=== PATIENT | male | born 1960 | race Caucasian/White ===

== ENCOUNTER 2018-02-09 07:53 | Emergency (ER) | payer MEDICARE ==
[2018-02-09 09:31] LABS: ALT (SGPT) 14 U/L (8-55); AST (SGOT) 26 U/L (5-34); Albumin 3.8 g/dL (3.5-5.0); Alkaline Phosphatase 52 U/L (40-150); Anion Gap 12 mmol/L (10-20); BUN (Urea Nitrogen) 9 mg/dL (8.4-25.7); Bilirubin, Total 0.6 mg/dL (0.2-1.2); CK (CPK) 274 U/L (30-200); Calc. Creatinine Clearance 0 mL/min (70-130); Carbon Dioxide 25 mmol/L (22-29); Chloride 107 mmol/L (98-107); Estimated GFR-MDRD Greater than 90; Globulin 2.8 g/dL (2.4-3.5); Glucose 106 mg/dL (70-105); Lipase 8 U/L (8-78); Protein, Total 6.6 g/dL (6.0-8.3); Sodium 140 mmol/L (136-145)
[2018-02-09 09:49] LABS: Hemoglobin 13.5 g/dL (14.0-18.0); Mean Corpuscular HGB CONC 35.4 g/dL (32.0-36.0); Mean Corpuscular Hemoglobin 32.9 pg (27.0-31.0); Mean Corpuscular Volume 92.8 fL (78.0-98.0); Mean Platelet Volume 7.4 fL (7.4-10.4); Platelet Count 166 thou/uL (130-400); RBC Distribution Width 12.6 % (11.5-14.5); White Blood Cell (WBC) Count 9.9 thou/uL (4.8-10.8)
[2018-02-09 09:50] LABS: CKMB 15.5 ng/mL (0-6.6); Troponin I 0.511 ng/mL (< 0.028)
[2018-02-09 10:16] LABS: Lymphocytes 8 % (21-51); MDiff Complete? YES; Metamyelocyte 1 % (0-0); Monocytes 9 % (0-10); Myelocyte 3 % (0-0); Neutrophil 79 % (42-75); PLT Morphology Comment Appears Adequate; RBC Morphology Normal
--- NOTE | 2018-02-09 18:19 | RAD ---
PORTABLE CHEST: Date: 02/09/18 FINDINGS: The heart is normal in size and the lungs are clear. This portable film at 0843 hours shows no acute changes. There is no congestion, edema, or pleural effusion. Mediastinum appears normal. IMPRESSION: No acute findings. POS: HOME
== END 2018-02-09 11:00 | disposition short-term general hospital (02) ==
LOC: BURERS 07:53
DX: I24.9 Acute ischemic heart disease, unspecified (principal); I25.2 Old myocardial infarction; E78.5 Hyperlipidemia, unspecified; I10 Essential (primary) hypertension; F32.9 Major depressive disorder, single episode, unspecified; F17.210 Nicotine dependence, cigarettes, uncomplicated; Z79.899 Other long term (current) drug therapy
CPT/HCPCS: 71045; 80053; 82553; 83690; 84484; 85025; 93005

== ENCOUNTER 2018-02-26 07:23 | Emergency (ER) | payer MEDICARE ==
[2018-02-26 08:21] LABS: Hemoglobin 13.4 g/dL (14.0-18.0); Mean Corpuscular HGB CONC 35.6 g/dL (32.0-36.0); Mean Corpuscular Hemoglobin 31.8 pg (27.0-31.0); Mean Corpuscular Volume 89.5 fL (78.0-98.0); Mean Platelet Volume 7.2 fL (7.4-10.4); Platelet Count 194 thou/uL (130-400); RBC Distribution Width 12.1 % (11.5-14.5); Red Blood Cell (RBC) Count 4.22 mill/uL (4.70-6.10); White Blood Cell (WBC) Count 7.3 thou/uL (4.8-10.8)
[2018-02-26 08:26] LABS: ALT (SGPT) 12 U/L (8-55); AST (SGOT) 17 U/L (5-34); Alkaline Phosphatase 65 U/L (40-150); Anion Gap 13 mmol/L (10-20); BUN (Urea Nitrogen) 11 mg/dL (8.4-25.7); Bilirubin, Total 0.4 mg/dL (0.2-1.2); Calc. Creatinine Clearance 0 mL/min (70-130); Calcium 9.6 mg/dL (7.8-10.44); Carbon Dioxide 25 mmol/L (22-29); Chloride 107 mmol/L (98-107); Estimated GFR-MDRD Greater than 90; Glucose 116 mg/dL (70-105); Sodium 141 mmol/L (136-145)
[2018-02-26 08:31] LABS: CKMB 1.3 ng/mL (0-6.6); Troponin I Less than 0.010 ng/mL (< 0.028)
[2018-02-26 08:36] LABS: Eosinophils 3 % (0-10); Lymphocytes 15 % (21-51); MDiff Complete? YES; Monocytes 8 % (0-10); Neutrophil 70 % (42-75); PLT Morphology Comment Appears Adequate; RBC Morphology Normal; Reactive Lymphocytes 4 % (0-10)
--- NOTE | 2018-02-26 20:06 | RAD ---
PORTABLE CHEST: 02/26/18 An AP portable film at 0734 is compared with a 02/09/18 study. There has been on adverse interval change. The heart is normal in size and the lungs are clear. No in filtrate, effusion, edema, or congestion was noted. The mediastinum appears normal. IMPRESSION: No acute finding. POS: HOME
== END 2018-02-26 09:23 ==
LOC: BURERS 07:23
DX: R06.02 Shortness of breath (principal); J45.909 Unspecified asthma, uncomplicated; I25.2 Old myocardial infarction; E78.5 Hyperlipidemia, unspecified; M06.9 Rheumatoid arthritis, unspecified; F32.9 Major depressive disorder, single episode, unspecified; F17.210 Nicotine dependence, cigarettes, uncomplicated; Z79.899 Other long term (current) drug therapy; Z79.82 Long term (current) use of aspirin
CPT/HCPCS: 36415; 71045; 80053; 82553; 84484; 85025; 85379; 93005

== ENCOUNTER 2020-07-06 08:58 | Emergency (ER) | payer MEDICARE ==
[2020-07-06] MEDS ORDERED: Lorazepam 2 MG/ML VIAL ONE (09:25)
[2020-07-06] MEDS ORDERED: Metoprolol Tartrate 5 MG/5 ML VIAL ONE (09:26)
[2020-07-06] MEDS ORDERED: Aspirin Chewable 81 MG TAB ONE (09:26)
[2020-07-06 09:28] LABS: #Basophils 0.3 thou/uL (0.0-0.2); #Eosinphils 0.4 thou/uL (0.0-0.7); #Lymphocytes 1.4 thou/uL (1.20-3.40); #Monocytes 0.7 thou/uL (0.11-0.59); %Basophils 2.9 % (0.0-1.0); %Lymphocytes 15.8 % (21.0-51.0); %Monocytes 8.4 % (0.0-10.0); %Neutrophils 67.9 % (42.0-75.0); Hemoglobin 15.8 g/dL (14.0-18.0); Mean Corpuscular HGB CONC 31.2 g/dL (32.0-36.0); Mean Corpuscular Hemoglobin 31.3 pg (27.0-31.0); Platelet Count 213 thou/uL (130-400); RBC Distribution Width 14.2 % (11.5-14.5); Red Blood Cell (RBC) Count 5.06 mill/uL (4.70-6.10); White Blood Cell (WBC) Count 8.9 thou/uL (4.8-10.8)
[2020-07-06 09:46] LABS: ALT (SGPT) 16 U/L (8-55); AST (SGOT) 18 U/L (5-34); Albumin 3.9 g/dL (3.5-5.0); Alkaline Phosphatase 93 U/L (40-110); Anion Gap 16 mmol/L (10-20); BUN (Urea Nitrogen) 8 mg/dL (8.4-25.7); Bilirubin, Total 0.3 mg/dL (0.2-1.2); Calc. Creatinine Clearance 0 mL/min (70-130); Calcium 9.4 mg/dL (7.8-10.44); Carbon Dioxide 24 mmol/L (22-29); Chloride 102 mmol/L (98-107); Glucose 108 mg/dL (70-105); Lipase 14 U/L (8-78); Potassium 3.8 mmol/L (3.5-5.1); Sodium 138 mmol/L (136-145)
[2020-07-06 10:45] LABS: Globulin 4.2 g/dL (2.4-3.5); Protein, Total 8.1 g/dL (6.0-8.3)
--- NOTE | 2020-07-06 17:13 | RAD ---
PORTABLE CHEST: 07/06/20 An AP portable film at 0937 is compared with a 04/12/18 study. The heart is normal in size. There is no vascular congestion, edema or pleural effusion. No lobar pul monary infiltrates were seen. Some haziness in the lingula is longstanding and is most likely a fat p ad. IMPRESSION: No acute thoracic finding. POS: HOME
== END 2020-07-06 11:11 | disposition short-term general hospital (02) ==
LOC: BURERS 08:58
DX: I20.8 Other forms of angina pectoris (principal); J45.909 Unspecified asthma, uncomplicated; I25.2 Old myocardial infarction; F17.210 Nicotine dependence, cigarettes, uncomplicated; E78.5 Hyperlipidemia, unspecified; M06.9 Rheumatoid arthritis, unspecified
CPT/HCPCS: 71045; 80053; 83690; 83735; 84443; 84484; 85025; 93005; 94760; 96374; 96375; J2060

== ENCOUNTER 2020-12-03 12:23 | Emergency (ER) | payer MEDICARE ==
[2020-12-03] MEDS ORDERED: Dexamethasone 10 MG/ML VIAL ONE (12:36)
[2020-12-03] MEDS ORDERED: Ketorolac Tromethamine 60 MG/2 ML VIAL ONE (12:36)
== END 2020-12-03 13:00 | disposition home or self-care (01) ==
LOC: BURERS 12:23
DX: M54.40 Lumbago with sciatica, unspecified side (principal); G89.29 Other chronic pain; I25.2 Old myocardial infarction; E78.5 Hyperlipidemia, unspecified; M06.9 Rheumatoid arthritis, unspecified; F17.210 Nicotine dependence, cigarettes, uncomplicated
CPT/HCPCS: 96372; 99281; J1100; J1885

== ENCOUNTER 2021-04-15 08:58 | Emergency (ER) | payer MEDICARE ==
[2021-04-15] MEDS ORDERED: Azithromycin 500 MG VIAL ONE (09:48)
[2021-04-15 10:03] LABS: ALT (SGPT) 22 U/L (8-55); AST (SGOT) 30 U/L (5-34); Albumin 3.9 g/dL (3.5-5.0); Alkaline Phosphatase 91 U/L (40-110); Anion Gap 16 mmol/L (10-20); BUN (Urea Nitrogen) 9 mg/dL (8.4-25.7); Bilirubin, Total 0.4 mg/dL (0.2-1.2); Calc. Creatinine Clearance 0 mL/min (70-130); Carbon Dioxide 23 mmol/L (22-29); Chloride 99 mmol/L (98-107); Globulin 3.5 g/dL (2.4-3.5); Glucose 94 mg/dL (70-105); Potassium 4.1 mmol/L (3.5-5.1); Protein, Total 7.4 g/dL (6.0-8.3); Sodium 134 mmol/L (136-145)
[2021-04-15 10:11] LABS: Hemoglobin 15.9 g/dL (14.0-18.0); Mean Corpuscular HGB CONC 32.5 g/dL (32.0-36.0); Mean Corpuscular Hemoglobin 32.1 pg (27.0-31.0); Mean Corpuscular Volume 98.7 fL (78.0-98.0); Mean Platelet Volume 9.3 fL (7.4-10.4); Platelet Count 198 thou/uL (130-400); RBC Distribution Width 13.6 % (11.5-14.5); Red Blood Cell (RBC) Count 4.94 mill/uL (4.70-6.10); White Blood Cell (WBC) Count 4.2 thou/uL (4.8-10.8)
[2021-04-15 11:02] LABS: Band 5 % (5-11); Eosinophils 5 % (0-10); Lymphocytes 27 % (21-51); MDiff Complete? YES; Monocytes 18 % (0-10); Neutrophil 41 % (42-75); Reactive Lymphocytes 1 % (0-10); Reflex for Review?? YES
[2021-04-15 11:09] LABS: SARS-CoV-2 NAA Rapid Test DETECTED (NotDetected)
[2021-04-15] MEDS ORDERED: Dexamethasone 10 MG/ML VIAL ONE (11:24)
[2021-04-15] MEDS ORDERED: Iopamidol 370 76% 100 ML VIAL ONE (17:10)
== END 2021-04-15 11:48 | disposition home or self-care (01) ==
LOC: BURERS 08:58
DX: U07.1 COVID-19 (principal); Z71.6 Tobacco abuse counseling; F17.210 Nicotine dependence, cigarettes, uncomplicated; J45.909 Unspecified asthma, uncomplicated; I25.2 Old myocardial infarction; E78.5 Hyperlipidemia, unspecified; I00 Rheumatic fever without heart involvement; Z79.899 Other long term (current) drug therapy; Z79.02 Long term (current) use of antithrombotics/antiplatelets
CPT/HCPCS: 71045; 71275; 80053; 83605; 83880; 84484; 85025; 87040; 93005; 94760; 96365; 96375; 99285; U0002; 36415; 85060; J0456; J1100; Q9967

== ENCOUNTER 2021-08-29 11:30 | Emergency (ER) | payer MEDICARE ==
[2021-08-29 12:06] LABS: #Basophils 0.2 thou/uL (0.0-0.2); #Eosinphils 0.3 thou/uL (0.0-0.7); #Lymphocytes 1.6 thou/uL (1.20-3.40); #Monocytes 1.1 thou/uL (0.11-0.59); #Neutrophils 6.5 thou/uL (1.40-6.50); %Basophils 1.7 % (0.0-1.0); %Eosinophils 2.8 % (0.0-10.0); %Lymphocytes 16.2 % (21.0-51.0); %Monocytes 11.8 % (0.0-10.0); %Neutrophils 67.5 % (42.0-75.0); Hemoglobin 12.2 g/dL (14.0-18.0); Mean Corpuscular HGB CONC 32.1 g/dL (32.0-36.0); Mean Corpuscular Hemoglobin 32.3 pg (27.0-31.0); Mean Platelet Volume 6.9 fL (7.4-10.4); Platelet Count 244 thou/uL (130-400); RBC Distribution Width 13.7 % (11.5-14.5); White Blood Cell (WBC) Count 9.6 thou/uL (4.8-10.8)
[2021-08-29] MEDS ORDERED: Aspirin Chewable 81 MG TAB ONE (12:10)
[2021-08-29 12:24] LABS: ALT (SGPT) 20 U/L (8-55); AST (SGOT) 25 U/L (5-34); Albumin 3.9 g/dL (3.5-5.0); Alkaline Phosphatase 95 U/L (40-110); Anion Gap 12 mmol/L (10-20); BUN (Urea Nitrogen) 9 mg/dL (8.4-25.7); Bilirubin, Total 0.4 mg/dL (0.2-1.2); Calc. Creatinine Clearance 0 mL/min (70-130); Calcium 9.5 mg/dL (7.8-10.44); Carbon Dioxide 27 mmol/L (22-29); Chloride 107 mmol/L (98-107); Globulin 3.7 g/dL (2.4-3.5); Glucose 90 mg/dL (70-105); Potassium 3.7 mmol/L (3.5-5.1); Protein, Total 7.6 g/dL (6.0-8.3); Sodium 142 mmol/L (136-145)
[2021-08-29 13:08] LABS: CKMB 5.3 ng/mL (0-6.6)
[2021-08-29 23:05] LABS: SARS-CoV-2 PCR by NAA Not Detected (NotDetected)
== END 2021-08-29 13:30 | disposition short-term general hospital (02) ==
LOC: BURERS 11:30
DX: I21.4 Non-ST elevation (NSTEMI) myocardial infarction (principal); E78.5 Hyperlipidemia, unspecified; F17.210 Nicotine dependence, cigarettes, uncomplicated; J45.909 Unspecified asthma, uncomplicated; I25.2 Old myocardial infarction; M06.9 Rheumatoid arthritis, unspecified; Z20.822 Contact with and (suspected) exposure to COVID-19; Z95.5 Presence of coronary angioplasty implant and graft; Z79.899 Other long term (current) drug therapy
CPT/HCPCS: 71045; 80053; 82553; 84484; 85025; 93005; U0003; U0005

== ENCOUNTER 2022-03-28 11:29 | Emergency (ER) | payer MEDICARE | END 2022-03-28 13:20 | disposition home or self-care (01) | LOC: BURERS 11:29 | DX: J06.9 Acute upper respiratory infection, unspecified (principal); I25.2 Old myocardial infarction; E78.5 Hyperlipidemia, unspecified; M06.9 Rheumatoid arthritis, unspecified; F17.210 Nicotine dependence, cigarettes, uncomplicated; Z20.822 Contact with and (suspected) exposure to COVID-19; Z95.5 Presence of coronary angioplasty implant and graft | CPT/HCPCS: 99283; U0003; U0005 ==

== ENCOUNTER 2022-06-03 00:38 | Emergency (ER) | payer MEDICARE ==
[2022-06-03] MEDS ORDERED: Nitroglycerin 50 MG/250 ML BOT 250 ML ONE (01:05)
[2022-06-03] MEDS ORDERED: Heparin 25,000 units/D5W 500 ML ONE (01:05)
[2022-06-03] MEDS ORDERED: Aspirin Chewable 81 MG TAB ONE (01:08)
[2022-06-03] MEDS ORDERED: Heparin 10,000 UNITS/1 ML VIAL ONE (01:08)
[2022-06-03] MEDS ORDERED: Ondansetron PF 4 MG/2 ML Vial ONE (01:08)
[2022-06-03 01:15] LABS: #Basophils 0.2 thou/uL (0.0-0.2); #Eosinphils 0.1 thou/uL (0.0-0.7); #Lymphocytes 1.4 thou/uL (1.20-3.40); #Monocytes 0.6 thou/uL (0.11-0.59); #Neutrophils 13.5 thou/uL (1.40-6.50); %Basophils 1.5 % (0.0-1.0); %Eosinophils 0.8 % (0.0-10.0); %Lymphocytes 8.7 % (21.0-51.0); %Monocytes 3.5 % (0.0-10.0); %Neutrophils 85.4 % (42.0-75.0); Mean Corpuscular HGB CONC 31.5 g/dL (32.0-36.0); Mean Corpuscular Hemoglobin 27.9 pg (27.0-31.0); Mean Corpuscular Volume 88.4 fl (78.0-98.0); Mean Platelet Volume 6.9 fL (7.4-10.4); Platelet Count 291 10x3/uL (130-400); Red Blood Cell (RBC) Count 3.58 mill/uL (4.70-6.10); White Blood Cell (WBC) Count 15.8 10x3/uL (4.8-10.8)
[2022-06-03] MEDS ORDERED: Metoprolol Tartrate 5 MG/5 ML VIAL ONE ×3 (01:24→01:45)
[2022-06-03] MEDS ORDERED: Morphine 2 MG/ML VIAL ONE (01:24)
[2022-06-03 01:52] LABS: ALT (SGPT) 20 U/L (8-55); AST (SGOT) 22 U/L (5-34); Albumin 3.8 g/dL (3.5-5.0); Alkaline Phosphatase 92 U/L (40-110); Anion Gap 19 mmol/L (10-20); BUN (Urea Nitrogen) 13 mg/dL (8.4-25.7); Bilirubin, Total 0.2 mg/dL (0.2-1.2); Calc. Creatinine Clearance 0 mL/min (70-130); Carbon Dioxide 20 mmol/L (22-29); Chloride 101 mmol/L (98-107); Estimated GFR 102; Glucose 142 mg/dL (70-105); Lipase 10 U/L (8-78); Potassium 3.6 mmol/L (3.5-5.1); Protein, Total 6.8 g/dL (6.0-8.3); Sodium 136 mmol/L (136-145)
[2022-06-03 01:59] LABS: CKMB 2.9 ng/mL (0-6.6)
== END 2022-06-03 02:40 | disposition short-term general hospital (02) ==
LOC: BURERS 00:38
DX: I21.4 Non-ST elevation (NSTEMI) myocardial infarction (principal); J45.901 Unspecified asthma with (acute) exacerbation; E78.5 Hyperlipidemia, unspecified; Z79.899 Other long term (current) drug therapy; F17.210 Nicotine dependence, cigarettes, uncomplicated
CPT/HCPCS: 71045; 80053; 82553; 83690; 83880; 84484; 85025; 85730; 93005; 94760; 96365; 96368; 96375; 96376; J1644; J2270; J2405

== ENCOUNTER 2022-06-29 20:45 | Emergency (ER) | payer MEDICARE, OTHER ==
[2022-06-29] MEDS ORDERED: Budesonide 0.5 MG/2 ML NEB ONE (21:15)
[2022-06-29] MEDS ORDERED: methylPREDNISolone Sod Succ/PF 125 MG/2 ML VIAL ONE (21:15)
[2022-06-29 21:33] LABS: #Basophils 0.2 thou/uL (0.0-0.2); #Monocytes 1.3 thou/uL (0.11-0.59); #Neutrophils 16.7 thou/uL (1.40-6.50); %Eosinophils 0.2 % (0.0-10.0); %Lymphocytes 5.2 % (21.0-51.0); %Monocytes 6.8 % (0.0-10.0); %Neutrophils 86.8 % (42.0-75.0); Hemoglobin 8.7 g/dL (14.0-18.0); Mean Corpuscular HGB CONC 32.2 g/dL (32.0-36.0); Mean Corpuscular Hemoglobin 26.4 pg (27.0-31.0); Mean Platelet Volume 7.9 fL (7.4-10.4); Platelet Count 333 10x3/uL (130-400); RBC Distribution Width 16.9 % (11.5-14.5); Red Blood Cell (RBC) Count 3.28 mill/uL (4.70-6.10); White Blood Cell (WBC) Count 19.2 10x3/uL (4.8-10.8)
[2022-06-29 21:53] LABS: ALT (SGPT) 324 U/L (8-55); AST (SGOT) 325 U/L (5-34); Albumin 3.5 g/dL (3.5-5.0); Alkaline Phosphatase 173 U/L (40-110); Anion Gap 19 mmol/L (10-20); BUN (Urea Nitrogen) 20 mg/dL (8.4-25.7); Bicarbonate (HCO3v) 18.4 mmol/L (22.0-28.0); Bilirubin, Total 0.8 mg/dL (0.2-1.2); CO2 Tension (PvCO2) 31.7 mmHg (42.0-51.0); Calc. Creatinine Clearance 0 mL/min (70-130); Calcium 8.8 mg/dL (7.8-10.44); Carbon Dioxide 18 mmol/L (22-29); Chloride 95 mmol/L (98-107); Chloride 96 mmol/L (98-107); Estimated GFR 100; Globulin 2.9 g/dL (2.4-3.5); Glucose 122 mg/dL (70-105); Hemoglobin - Calc 9.8 g/dL (14.0-18.0); Potassium 3.8 mmol/L (3.5-5.1); Potassium 4.2 mmol/L (3.5-5.1); Protein, Total 6.4 g/dL (6.0-8.3); Sodium 127 mmol/L (138-145); Sodium 129 mmol/L (136-145); T. Carbon Dioxide 19.4 mmol/L (22.0-28.0); vO2 Saturation-calc 77.8 % (60.0-85.0)
[2022-06-29 22:11] LABS: Lipase Less than 4 U/L (8-78)
[2022-06-29 22:12] LABS: SARS-CoV-2 NAA Rapid Test Not Detected (NotDetected)
[2022-06-29] MEDS ORDERED: Cefepime 2 GM VIAL ONE (22:18)
[2022-06-29] MEDS ORDERED: Azithromycin 500 MG VIAL ONE (22:18)
[2022-06-29] MEDS ORDERED: Sodium Chloride 0.9% 100 ML ONE (22:18)
[2022-06-29 22:28] LABS: CKMB 6.5 ng/mL (0-6.6)
[2022-06-29] MEDS ORDERED: Furosemide 40 MG/4 ML VIAL ONE (23:31)
== END 2022-06-29 23:28 | disposition short-term general hospital (02) ==
LOC: BURERS 20:45
DX: J15.9 Unspecified bacterial pneumonia (principal); D64.9 Anemia, unspecified; I50.9 Heart failure, unspecified; I25.10 Atherosclerotic heart disease of native coronary artery without angina pectoris; E78.5 Hyperlipidemia, unspecified; F17.200 Nicotine dependence, unspecified, uncomplicated; E87.1 Hypo-osmolality and hyponatremia; Z20.822 Contact with and (suspected) exposure to COVID-19
CPT/HCPCS: 0240U; 71045; 80053; 82330; 82435; 82553; 82803; 83690; 83880; 84132; 84295; 84484; 85014; 85025; 85379; 87040; 93005; 96365; 96375; J0456; J0692; J1940; J2930; J3490; J7620; J7626